=== PATIENT | male | born 1950 | race Caucasian/White ===

== ENCOUNTER 2020-03-27 06:22 | Emergency (ER) | payer OTHER, MEDICARE ==
[~2020-03-27] VITALS: Ht 182.9 cm; Wt 84.0 kg
[2020-03-27] MEDS ORDERED: ondansetron/PF 4mg/2ml inj IV ONE (06:45)
[2020-03-27] MEDS ORDERED: mag hydrox/Alum hydrox/simeth 30ml oral suspension PO ONE (06:45)
[2020-03-27] MEDS ORDERED: LIDOcaine Viscous 15ml cup MM ONE (06:45)
[2020-03-27] MEDS ORDERED: famotidine/PF 10 mg/ml inj IV ONE (06:45)
[2020-03-27 06:47] LABS: CLARITY,URINE CLEAR (Clear); COLOR,URINE YELLOW (Yellow); GLUCOSE, URINE NEGATIVE (Neg); KETONES,URINE NEGATIVE (Neg); LEUKOCYTE ESTERASE ,URINE NEGATIVE (Neg); NITRITES, URINE NEGATIVE (Neg); OCCULT BLOOD,URINE NEGATIVE (Neg); PH,URINE 8.5 (4.8-8.0); PROTEIN,URINE NEGATIVE (Neg); UROBILINOGEN,URINE 0.2 E.U/dL (0.2-1.0)
[2020-03-27 06:48] LABS: UA COLLECTION TYPE CLN CATCH MIDSTREAM
[2020-03-27] MEDS ORDERED: METO1TAB25 PO (07:21)
[2020-03-27] MEDS ORDERED: AMIT-189 PO (07:24)
[2020-03-27] MEDS ORDERED: CARSR60C PO (07:24)
--- NOTE | 2020-03-27 07:26 | NUR ---
PT OUT TO CT VIA WHEELCHAIR WITH [facility]
[2020-03-27 07:32] LABS: BASOPHILS % (AUTO) 0.2 % (0-1); EOSINOPHILS % (AUTO) 0.1 % (0-6); HEMATOCRIT 39.8 % (42.0-52.0); HEMOGLOBIN 13.5 g/dl (14.0-17.9); LYMPHOCYTES # (AUTO) 1.9 X10'3 (1.1-4.8); LYMPHOCYTES % (AUTO) 17.4 % (21-51); MEAN CORPUSCULAR HEMOGLOBIN 33.5 PG (27.0-31.0); MEAN CORPUSCULAR VOLUME 98.4 FL (78-98); MEAN PLATELET VOLUME 8.5 FL (7.4-10.4); MONOCYTES # (AUTO) 1.8 X10'3 (0-0.9); MONOCYTES % (AUTO) 16.6 % (2-12); NEUTROPHILS # (AUTO) 7.3 X10'3 (1.8-7.7); NEUTROPHILS % (AUTO) 65.7 % (42-75); PLATELET COUNT 188 X10'3 (140-440); RED BLOOD COUNT 4.05 X10'6 (4.70-6.10); RED CELL DISTRIBUTION WIDTH 12.9 % (11.5-14.5); WHITE BLOOD COUNT 11.1 X10'3 (4.5-11.0)
--- NOTE | 2020-03-27 07:33 | NUR ---
PT RETURNS FROM CT
[2020-03-27 07:43] LABS: ALANINE AMINOTRANSFERASE 44 U/L (12-78); ALBUMIN 3.6 G/DL (3.4-5.0); ALKALINE PHOSPHATASE 105 IU/L (46-116); ANION GAP 9 (8-16); ASPARTATE AMINO TRANSFERASE 35 U/L (10-37); BILIRUBIN,TOTAL 1.1 MG/DL (0.1-1.0); BLOOD UREA NITROGEN 8 MG/DL (7-18); BUN/CREATININE RATIO 8.2 (5.4-32.0); CHLORIDE 101 MMOL/L (99-107); CREATININE 0.98 MG/DL (0.60-1.10); GLUCOSE 121 MG/DL (70-104); LIPASE 918 U/L (73-393); POTASSIUM 3.7 MMOL/L (3.5-5.1); SODIUM 136 MMOL/L (135-145); TOTAL CARBON DIOXIDE 26.4 MMOL/L (24-32); TOTAL PROTEIN 7.3 G/DL (6.4-8.2); eGFR 76 ML/MIN
[2020-03-27] MEDS ORDERED: normal saline 1000ML IV soln IVB ONE (08:10)
[2020-03-27] MEDS ORDERED: morphine 4 MG/ML inj SYRINge IV ONE (08:10)
[2020-03-27 09:02] LABS: PLATELET ESTIMATE NORMAL; TOTAL CELLS COUNTED 100
[2020-03-27] MEDS ORDERED: ONDA8TAB6 PO (09:02)
[2020-03-27] MEDS ORDERED: HYDR-3965 PO (09:02)
[2020-03-27 09:03] LABS: POLYCHROMASIA FEW; STOMATOCYTES 1+
[2020-03-27] MEDS ORDERED: HYDROcodone/acetaminophen 5mg/325mg tablet PO ONE (09:10)
[2020-03-27 09:54] VITALS: BP 124/105
== END 2020-03-27 09:50 | disposition home or self-care (01) ==
LOC: ER 06:23
DX: K85.20 Alcohol induced acute pancreatitis without necrosis or infection (principal); R10.84 Generalized abdominal pain; Z85.038 Personal history of other malignant neoplasm of large intestine; Z98.890 Other specified postprocedural states; Z72.89 Other problems related to lifestyle; Z79.899 Other long term (current) drug therapy
CPT/HCPCS: 36415; 74176; 80053; 81003; 83605; 83690; 85007; 85025; 96361; 96374; 96375; 99284; J2270; J2405; J3490; J7030